=== PATIENT | male | born 1935 | race Caucasian/White ===

== ENCOUNTER 2017-02-09 18:11 | Emergency (ER) | payer OTHER ==
[~2017-02-09] VITALS: Ht 167.6 cm; Wt 81.0 kg
[~2017-02-09 18:11] MED LIST: AMLO-145 PO; ASPI-535 PO; CHOL100012 PO; CIPR500T4 PO; DOCU100T PO; FER325 PO; IBRU140C PO; LAS20 PO; LEUP3.75 IM; LEVO50TA74 PO; PANT40TA3 PO; PARO20TA58 PO; TAMS0.4C2 PO; TYL500 PO
[2017-02-09 18:34] VITALS: Ht 167.6 cm; Wt 81.0 kg
--- NOTE | 2017-02-09 23:07 | ERA ---
ER Documentation Chief Complaint Date/Time DATE: 02/09/17 TIME: 23:07 Chief Complaint dizziness since last night HPI The patient is a 81-year-old male, presenting to the ER because of dizziness at about 3 PM, associated with low blood pressure 96/60. He had similar symptoms previously. He feels well when he laid down, symptoms is worse if he walks. He denies fever, chills, syncope, near syncope, neck pain, chest pain, abdominal pain, vomiting, dysuria, diarrhea, constipation. He does not smoke does not drink Past medical history: Hypertension, atrial fibrillation, history of non-Hodgkin lymphoma, BPH, chronic kidney disease, hypothyroidism, history of prostate cancer Past surgical history: Prostatectomy, left inguinal herniorrhaphy, appendectomy ROS All systems reviewed and are negative except as per history of present illness. Medications Home Meds Active Scripts Ciprofloxacin Hcl* (Ciprofloxacin Hcl*) 500 Mg Tablet, 500 MG PO BID for 5 Days , TAB Prov:LOI SNYDER DO 09/24/16 Acetaminophen* (Tylenol*) 500 Mg Tab, 500 MG PO Q4H Y for MILD PAIN LEVEL 1-3, # 10 TAB Prov:LOI SNYDER DO 09/24/16 Reported Medications Tamsulosin Hcl* (Tamsulosin Hcl*) 0.4 Mg Cap.er.24h, 0.4 MG PO DAILY, CAP 09/24/16 Pantoprazole* (Protonix*) 40 Mg Tablet.dr, 40 MG PO DAILY, TAB 09/24/16 Docusate Sodium* (Dok*) 100 Mg Tablet, 100 MG PO DAILY, #30 CAP 09/24/16 Ferrous Sulfate* (Ferrous Sulfate*) 325 Mg Tabec, 325 MG PO DAILY, TAB 09/24/16 Levothyroxine Sodium* (Levothyroxine Sodium*) 50 Mcg Tablet, 50 MCG PO BEFORE BREAKFAST, #30 TAB 09/24/16 Leuprolide Acetate (Lupron Depot) 3.75 Mg Syringekit, 3.75 MG IM Q90D 09/24/16 Ibrutinib (Imbruvica) 140 Mg Capsule, 140 MG PO BID, CAP 09/24/16 Cholecalciferol (Vitamin D3) 1,000 Unit Tab.chew, 2000 UNIT PO DAILY, TAB.CHEW 09/24/16 Amlodipine Besylate* (Amlodipine Besylate*) 5 Mg Tablet, 5 MG PO DAILY, #30 TAB 09/24/16 Aspirin Ec (Aspir 81) 81 Mg Tablet.dr, 81 MG PO DAILY, #30 TAB 09/24/16 Furosemide (Lasix) 20 Mg Tab, 20 MG PO DAILY, TAB 09/24/16 Paroxetine Hcl* (Paxil*) 20 Mg Tablet, 20 MG PO HS, TAB 09/24/16 Allergies Allergies: Coded Allergies: No Known Allergy (Unverified , 02/09/17) PMhx/Soc History of Surgery: No Anesthesia Reaction: No Hx Neurological Disorder: No Hx Respiratory Disorders: No Hx Cardiac Disorders: Yes (HTN, AFIB) Hx Miscellaneous Medical Probl: Yes (NON HODGKINS LYMPHOMA, PROSTATE ENLARGEMENT, KIDNEY STONES) Hx Alcohol Use: No Hx Substance Use: No Hx Tobacco Use: No Physical Exam Vitals Vital Signs Date Time Temp Pulse Resp B/P Pulse Ox O2 Delivery O2 Flow Rate FiO2 02/10/17 01:45 98.0 20 154/91 98 Room Air 02/10/17 01:32 80 18 149/85 98 Room Air 02/10/17 00:50 98.3 76 20 131/85 98 Room Air 02/09/17 18:34 97.4 95 20 106/66 97 Physical Exam Const: No acute distress. Dehydrated Head: Atraumatic. Eyes: Normal Conjunctiva. ENT: Normal External Ears, Nose and Mouth. Neck: Full range of motion. No meningismus. Resp: Clear to auscultation bilaterally. Cardio: Irregularly irregular Abd: Soft, non distended, normal bowel sounds, non tender. Skin: No petechiae or rashes. Back: No midline or flank tenderness. Ext: No cyanosis, or edema. Neur: Awake and alert. No focal deficit Psych: Normal Mood and Affect. Result Diagram: 02/09/17 2315 02/09/17 2315 Results 24 hrs Laboratory Tests Test 02/09/17 23:15 02/09/17 23:37 White Blood Count 7.010^3/ul Red Blood Count 5.0910^6/ul Hemoglobin 14.9g/dl Hematocrit 44.2% Mean Corpuscular Volume 86.8fl Mean Corpuscular Hemoglobin 29.3pg Mean Corpuscular Hemoglobin Concent 33.7g/dl Red Cell Distribution Width 13.6% Platelet Count 65327^3/UL Mean Platelet Volume 11.1fl Neutrophils % 47.9% Lymphocytes % 39.2% Monocytes % 8.7% Eosinophils % 2.9% Basophils % 0.6% Nucleated Red Blood Cells % 0.0/100WBC Neutrophils # 3.410^3/ul Lymphocytes # 2.710^3/ul Monocytes # 0.610^3/ul Eosinophils # 0.210^3/ul Basophils # 0.010^3/ul Nucleated Red Blood Cells # 0.010^3/ul Prothrombin Time 13.3Sec Prothrombin Time Ratio 1.0 INR International Normalized Ratio 1.01 Activated Partial Thromboplast Time 32.2Sec Sodium Level 140mmol/L Potassium Level 3.5mmol/L Chloride Level 102mmol/L Carbon Dioxide Level 26mmol/L Anion Gap 16 Blood Urea Nitrogen 38mg/dl Creatinine 2.40mg/dl Glucose Level 141mg/dl Calcium Level 9.5mg/dl Bedside Glucose 128mg/dL Current Medications Medications (Trade) Dose Ordered Sig/Juan Daniel Route PRN Reason Start Time Stop Time Status Last Admin Dose Admin Sodium Chloride (NS) 500 ml @ 500 mls/hr Q1H ONCE IV 02/10/17 01:00 02/10/17 01:59 DC 02/10/17 01:37 Procedures/MDM MEDICAL MAKING DECISION: The patient is a 81-year-old male, presenting with acute dizziness most likely due to acute dehydration. He was treated with normal saline 500 mL IV with good response. The differential diagnoses considered include but are not limited to central causes such as cerebellar infarct, cerebellar hemorrhage, cerebellar tumor, acoustic neuroma, peripheral causes such as benign positional vertigo, labyrinthitis, medication, Meniere's disease. EKG: Read by emergency physician Rate/Rhythm: Atrial fibrillation 95 beats/min QRS, ST, T-waves: No ST elevation, no T inversion, incomplete right bundle branch block, septal Q waves Impression: Abnormal EKG Departure Diagnosis: Primary Impression: Dizziness Additional Impression: Dehydration Condition: Good Comments I discussed the findings with the patient. I advised the patient to follow-up with the primary physician in about 1-2 days, sooner if needed and return if any concern. KELLY NAM MD Feb 09, 2017 23:07
[2017-02-09 23:33] LABS: ADD SCAN DIFF NO
[2017-02-09 23:37] LABS: BASOPHILS % 0.6 % (0.0-2.0); EOSINOPHILS # 0.2 10^3/ul (0.0-0.5); EOSINOPHILS % 2.9 % (0.0-7.0); HEMATOCRIT 44.2 % (42.0-52.0); HEMOGLOBIN 14.9 g/dl (14.0-18.0); LYMPHOCYTES # 2.7 10^3/ul (0.8-2.9); LYMPHOCYTES % 39.2 % (15.0-51.0); MEAN CORPUSCULAR HEMOGLOBIN 29.3 pg (29.0-33.0); MEAN CORPUSCULAR HGB CONC 33.7 g/dl (32.0-37.0); MEAN CORPUSCULAR VOLUME 86.8 fl (82.0-101.0); MEAN PLATELET VOLUME 11.1 fl (7.4-10.4); MONOCYTE # 0.6 10^3/ul (0.3-0.9); MONOCYTES % 8.7 % (0.0-11.0); NEUTROPHIL # 3.4 10^3/ul (1.6-7.5); NEUTROPHILS % 47.9 % (39.0-77.0); PLATELET COUNT 216 10^3/UL (140-415); RED BLOOD COUNT 5.09 10^6/ul (4.70-6.10); RED CELL DISTRIBUTION WIDTH 13.6 % (11.5-14.5)
[2017-02-09 23:52] LABS: INR 1.01; PROTIME 13.3 Sec (12.2-14.2)
[2017-02-09 23:53] LABS: PARTIAL THROMBOPLASTIN TIME 32.2 Sec (25.0-35.0)
[2017-02-09 23:54] LABS: POTASSIUM 3.5 mmol/L (3.5-5.1)
[2017-02-09 23:57] LABS: CREATININE 2.4 mg/dl (0.61-1.24)
[2017-02-09 23:58] LABS: CALCIUM 9.5 mg/dl (8.4-10.2)
[2017-02-10] MEDS ORDERED: SOD CHLORIDE 0.9% 500 ML IV ONE (01:00)
[2017-02-10 01:32] VITALS: PULSE 80
[2017-02-10 01:45] VITALS: BP 154/91; RESP 20; TEMP 98
== END 2017-02-10 01:45 | disposition home or self-care (01) ==
LOC: E/R 18:11
DX: R42 Dizziness and giddiness (principal); R40.2252 Coma scale, best verbal response, oriented, at arrival to emergency department; E86.0 Dehydration; I12.9 Hypertensive chronic kidney disease with stage 1 through stage 4 chronic kidney disease, or unspecified chronic kidney disease; N18.9 Chronic kidney disease, unspecified; E03.9 Hypothyroidism, unspecified; R40.2142 Coma scale, eyes open, spontaneous, at arrival to emergency department; R40.2362 Coma scale, best motor response, obeys commands, at arrival to emergency department; Z85.46 Personal history of malignant neoplasm of prostate; Z79.82 Long term (current) use of aspirin
CPT/HCPCS: 36415; 80048; 82962; 85025; 85610; 85730; J7040; Z7502; 93005

== ENCOUNTER 2018-07-14 10:29 | Inpatient (IN) | END 2018-07-18 22:32 | disposition home or self-care (01) | DRG 309 ==